=== PATIENT | male | born 1955 | race African-American/Black ===

== ENCOUNTER → 2017-01-22 | Outpatient (CLI) | payer OTHER ==
[~2017-01-22] MED LIST: DIABETA2.5 MG PO; METFORMIN HCL500 M1 PO
--- NOTE | ~2017-01-22 | CT55 ---
[facility] A Service of [facility] RADIOLOGY TEXT RESULTS PATIENT: KVNG ENNIS LOCATION: [facility] : 57 UNIT #: [id number] AGE: [address]: Ashleigh Santiago MD SEX: M ORDER DR: [id number] [facility]. [place], [place] [address] [id number] O MR#: [id number] Acc #: [id number] NAME: KVNG ENNIS : 1955 SEX: M STUDY DATE/TIME: 01/22/2017 11:42 UNIT: [facility] ROOM: STUDY DESCRIPTION: CT Chest W Con Attending Physician: Ashleigh Santiago M.D. Referring Physician: Ashleigh Santiago M.D. Ordering Physician: Ashleigh Santiago M.D. Primary Care Physician: Ravi De Leon Aprn MEDICAL IMAGING REPORT This report is preliminary unless electronic signature is present EXAM CT chest. INDICATION Esophageal carcinoma. Restaging. Observation for metastatic disease. Prior chemotherapy. TECHNIQUE CT of the thorax with contrast (100 mL Isovue-370 IV contrast). Coronal and sagittal reconstructions were obtained. This CT exam was performed with one or more of the following radiation dose reduction techniques: automatic exposure control, adjustment of mA and/or kV according to patient size, and iterative reconstruction. COMPARISON Concurrent CT abdomen and pelvis dated 01/22/[address] chest abdomen and pelvis dated 09/30/2016. FINDINGS The patient is status post distal esophagectomy and presumably gastrectomy. There appears to be a esophageal jejunostomy. No evidence of recurrent or residual mass. No suspicious pulmonary findings. No pathologically enlarged mediastinal or hilar lymph nodes. Thoracic aorta is normal in caliber. No pericardial or pleural effusion. Please refer to the separately dictated report for details on the abdomen and pelvis. No acute osseous abnormalities. [facility] A Service of [facility] RADIOLOGY TEXT RESULTS PATIENT: KVNG ENNIS LOCATION: [facility] : 57 UNIT #: [id number] AGE: [address]: Ashleigh Santiago MD SEX: M ORDER DR: IMPRESSION No evidence of disease progression. No evidence of metastatic disease in the chest. Dictated by... Prieto Segal M.D. THIS IS AN ELECTRONICALLY VERIFIED REPORT Prieto Segal M.D. at 01/22/2017 6:43 PM RPC/layla TD: 01/22/2017 15:58 JOB #: [id number] MEDICAL IMAGING REPORT Page 1 of 1 COPY
--- NOTE | ~2017-01-22 | CT2 ---
[facility] A Service of [facility] RADIOLOGY TEXT RESULTS PATIENT: KVNG ENNIS [facility]: [facility] : 57 UNIT #: [id number] AGE: [address]: Ashleigh Santiago MD SEX: M ORDER DR: [id number] [facility] [address]. [place], [place] [address] [id number] O MR#: [id number] Acc #: [id number] NAME: KVNG ENNIS : 1955 SEX: M STUDY DATE/TIME: 01/22/2017 11:01 UNIT: [facility] ROOM: STUDY DESCRIPTION: CT Abd and Pelv W Cont Attending Physician: Ashleigh Santiago M.D. Referring Physician: Ashleigh Santiago M.D. Ordering Physician: Ashleigh Santiago M.D. Primary Care Physician: Ravi De Leon Aprn MEDICAL IMAGING REPORT This report is preliminary unless electronic signature is present EXAM CT abdomen and pelvis. INDICATION Distal esophageal carcinoma status post resection. Restaging. Observation for metastatic disease. TECHNIQUE CT of the abdomen and pelvis utilizing 100 mL Isovue-370 IV contrast. Coronal and sagittal reconstructions were obtained. This CT exam was performed with one or more of the following radiation dose reduction techniques: automatic exposure control, adjustment of mA and/or kV according to patient size, and iterative reconstruction. COMPARISON Concurrent CT chest dated 01/22/2017, CT chest, abdomen and pelvis dated 09/30/2016 and 04/23/2016. FINDINGS The liver enhances normally. There is focal gallbladder adenomyomatosis at the fundus. This is unchanged. The pancreas, spleen, and kidneys are stable. There is a renal calculus in the lower pole right kidney. No hydronephrosis. Several benign cyst are identified in the kidneys, as well. There is thickening and nodularity at both adrenal glands, however, this is stable from at least February 2015. The bowel is not dilated. Patient is status post distal esophagectomy and presumably gastrectomy with a esophageal jejunostomy in the left upper quadrant. The small bowel is not dilated. No pathologically enlarged retroperitoneal or mesenteric lymph nodes. There is moderate left-sided colonic diverticulosis. No diverticulitis. The abdominal aorta is normal in caliber. [facility] A Service of [facility] RADIOLOGY TEXT RESULTS PATIENT: KVNG ENNIS LOCATION: [facility] : 57 UNIT #: [id number] AGE: [address]: Ashleigh Santiago MD SEX: M ORDER DR: PELVIS: No pelvic mass. The bladder is unremarkable. No acute osseous abnormalities. IMPRESSION No evidence of metastatic disease in the abdomen or pelvis. No evidence of disease progression. Dictated by... Prieto Segal M.D. THIS IS AN ELECTRONICALLY VERIFIED REPORT Prieto Segal M.D. at 01/22/2017 6:43 PM THAIS/layla TD: 01/22/2017 16:37 JOB #: [id number] MEDICAL IMAGING REPORT Page 1 of 1 COPY
[2017-01-22 11:51] LABS: POC - CREATININE 0.79 mg/dL (0.64-1.27); POC - GFR >60.0 mL/min (>60)
== END | disposition home or self-care (01) ==
LOC: CCAT 10:50
PROVIDERS: Internal Medicine Hematology
DX: C15.9 Malignant neoplasm of esophagus, unspecified (principal)
CPT/HCPCS: 71260; 74177; 82565; Q9967